=== PATIENT | male | born 1970 | race Caucasian/White ===

== ENCOUNTER 2017-01-06 13:41 | Emergency (ER) | payer OTHER ==
[~2017-01-06] VITALS: Ht 167.6 cm; Wt 86.1 kg
[2017-01-06 15:00] LABS: HEMATOCRIT 47.5 % (38.0-50.0); MCH 31.3 PG (29.0-34.0); MCHC 33.3 G/DL (30.0-36.0); MCV 94.2 FL (86-99); MEAN PLAT.VOLUME 10.6 uM^3 (9.0-12.4); PLATELET COUNT 198 K/uL (156-360); RBC DIS.WIDTH-CV 12.3 % (11.8-14.6); RBC DIS.WIDTH-SD 42.6 % (39-53); RED BLOOD COUNT 5.04 M/uL (4.00-5.50); WHITE BLOOD COUNT 7.6 K/uL (4.1-10.2)
[2017-01-06 15:10] LABS: CHLORIDE 106 mEq/L (99-109); POTASSIUM 4.3 mEq/L (3.7-5.4); SODIUM 142 mEq/L (136-147)
[2017-01-06 15:12] LABS: GLUCOSE 103 mg/dL (70-99)
[2017-01-06 15:14] LABS: ANION GAP 11 MEQ/L (2-14)
[2017-01-06 15:17] LABS: UREA NITROGEN (BUN) 8 mg/dL (9-23)
[2017-01-06 15:19] LABS: GFR ESTIMATE (CALCULATED) > 59 mL/min/
[2017-01-06 17:54] VITALS: BP 135/94
== END 2017-01-06 17:55 ==
LOC: EME 13:41
PROVIDERS: Emergency Medicine
DX: T67.5XXA Heat exhaustion, unspecified, initial encounter (principal); R55 Syncope and collapse; W18.30XA Fall on same level, unspecified, initial encounter; Y93.H2 Activity, gardening and landscaping; Y92.149 Unspecified place in prison as the place of occurrence of the external cause; Z87.891 Personal history of nicotine dependence
CPT/HCPCS: 70450; 72131; 80048; 85027; 93005; 99281; 99285; J7030